=== PATIENT | male | born 1975 | race Two or more races ===

== ENCOUNTER 2020-02-16 15:22 | Emergency (ER) | payer MEDICAID ==
[~2020-02-16] VITALS: Ht 170.2 cm; Wt 66.0 kg
[2020-02-16 15:31] VITALS: BP 134/84
[2020-02-16] MEDS ORDERED: HYDROCODONE/ACETAMINOPHEN 5/325MG TABLET PO ONE (17:30)
[2020-02-16] MEDS ORDERED: TETANUS, DIPHTHERIA, PERTUSSIS VAC/PF 0.5ML (>7YR OLD) IM ONE (19:00)
[2020-02-16] MEDS ORDERED: LIDOCAINE HCL/PF 1% 10 MG/ML 5ML VIAL IJ ONE (19:00)
== END 2020-02-16 19:41 | disposition home or self-care (01) ==
LOC: ER 15:22
DX: S01.511A Laceration without foreign body of lip, initial encounter (principal); W22.8XXA Striking against or struck by other objects, initial encounter; Y93.89 Activity, other specified; Y92.89 Other specified places as the place of occurrence of the external cause; Y99.8 Other external cause status
CPT/HCPCS: 12011; 70486; 71045; 90471; 90715; 99285